=== PATIENT | female | born 1955 | race Caucasian/White ===

== ENCOUNTER 2020-02-17 17:46 | Inpatient (IN) | payer MEDICARE ==
[~2020-02-17] VITALS: Ht 154.9 cm; Wt 34.3 kg
--- NOTE | 2020-02-17 18:08 | NUR ---
BREAK RN: PT BIB [facility] FROM HOME C/O INTERMITTENT ABD PAIN WITH N/V X WEEKS. PT WORSE TODAY WITH RUQ/RLQ PAIN AND N/V DECSRIBED "MUCOUS". PT WAS SEEN AT [facility] A FEW DAYS AGO FOR SAME. PT RECEIVED 12.5 MG PHENERGAN, 25 MCG FENTANYL AND 500 CC NS BY EMS LOAN ASSISTANT. PT REPORTS THE LAST EPISODE WAS APPROX 4 MONTHS AGO. PT ON CONT BP AND SPO2 MONITORS. ELMER RENDON AT BEDSIDE FOR EVAL. CALL LIGHT WITHIN REACH. WILL CONT TO MONITOR PT.
[2020-02-17] MEDS ORDERED: SODIUM CHLORIDE FLUSH 10ML SYR IVF ONE (18:30)
[2020-02-17 18:34] LABS: BASOPHILS # (AUTO) 0.03 x10^3/uL (0-0.1); BASOPHILS % (AUTO) 0 % (0-1); EOSINOPHILS # (AUTO) 0.11 x10^3/uL (0-0.4); EOSINOPHILS % (AUTO) 1 % (1-7); LYMPHOCYTES # (AUTO) 1.16 x10^3/uL (1-3.4); LYMPHOCYTES % (AUTO) 15 % (22-44); MD NO; MEAN CORPUSCULAR HEMOGLOBIN 29.7 pg (27.0-34.8); MEAN CORPUSCULAR HGB CONC 32.8 g/dL (32.4-35.8); MEAN PLATELET VOLUME 8.2 fL (7.4-10.4); MONOCYTES # (AUTO) 0.54 x10^3/uL (0.2-0.8); MONOCYTES % (AUTO) 7 % (2-9); NEUTROPHILS # (AUTO) 5.99 x10^3/uL (1.8-6.8); NEUTROPHILS % (AUTO) 77 % (42-75); PLATELET COUNT 213 x10^3/uL (130-400); RED BLOOD COUNT 4.54 x10^6/uL (3.82-5.3); RED CELL DISTRIBUTION WIDTH 14.4 % (9.6-15.2)
[2020-02-17 18:43] LABS: ALBUMIN 3.2 g/dL (3.4-5.0); ANION GAP 6 mmol/L (5-15); CALCIUM 8.6 mg/dL (8.5-10.1); CHLORIDE 108 mmol/L (98-107)
[2020-02-17 18:47] LABS: ALANINE AMINOTRANSFERASE 99 U/L (12-78); ALKALINE PHOSPHATASE 142 U/L (45-117); BILIRUBIN,TOTAL 0.9 mg/dL (0.2-1.0); CREATININE 0.38 mg/dL (0.55-1.02); TOTAL PROTEIN 6.1 g/dL (6.4-8.2)
--- NOTE | 2020-02-17 18:55 | NUR ---
POTASSIUM F 2.5 PER LAB. RESULT GIVEN TO PT PLACED ON CUTTER INSPECTOR.
[2020-02-17] MEDS ORDERED: CARBAMAZEPINE PO (19:14)
[2020-02-17 19:26] LABS: MICROSCOPIC NOT IND
[2020-02-17] MEDS ORDERED: POTASSIUM CHLORIDE 40 MEQ in SODIUM CHLORIDE 0.9% 500 ML IV ONE (19:30)
--- NOTE | 2020-02-17 19:35 | NUR ---
POTASSIUM STARTED PER MD ORDER. PT UPDATED ON POC. VSS.
--- NOTE | 2020-02-17 20:04 | NUR ---
PT IN US.
--- NOTE | 2020-02-17 21:00 | NUR ---
GEN SURG PAGED.
[2020-02-17] MEDS ORDERED: SODIUM CHLORIDE 0.9% 1,000 ML IV SCH (21:03)
--- NOTE | 2020-02-17 21:10 | NUR ---
TASK RN: PT ASSISTED TO BS COMMODE TO URINATE. PT LIGHTS DIMMED FOR COMFORT, NAD, RESP WNL, P/W/D. CALL LIGHT ON LAP Addendum: 02/17/20 at 2112 by ESCHILLING PT ASSISTED TO BEDPAN.
[2020-02-17 21:13] LABS: INTERNATIONAL NORMALIZED RATIO 1.01 (0.93-1.1); PROTHROMBIN TIME 10.7 Seconds (9.6-11.5)
[2020-02-17] MEDS ORDERED: ONDANSETRON 2MG/ML, 2ML IVPush PRN (21:30)
[2020-02-17] MEDS ORDERED: morphine SULFATE 10 MG/ML, 1ML IVPush PRN (21:30)
[2020-02-17 22:05] VITALS: BP 141/97
[2020-02-17] MEDS: NS + 20MEQ KCL 1,000 ML IV SCH (23:24)
[2020-02-18 01:13] VITALS: BP 131/85
[2020-02-18 04:08] LABS: BASOPHILS # (AUTO) 0.04 x10^3/uL (0-0.1); BASOPHILS % (AUTO) 1 % (0-1); EOSINOPHILS # (AUTO) 0.08 x10^3/uL (0-0.4); EOSINOPHILS % (AUTO) 1 % (1-7); LYMPHOCYTES # (AUTO) 2.01 x10^3/uL (1-3.4); LYMPHOCYTES % (AUTO) 31 % (22-44); MD NO; MEAN CORPUSCULAR HEMOGLOBIN 29.8 pg (27.0-34.8); MEAN CORPUSCULAR HGB CONC 32.8 g/dL (32.4-35.8); MEAN PLATELET VOLUME 8.2 fL (7.4-10.4); MONOCYTES # (AUTO) 0.53 x10^3/uL (0.2-0.8); MONOCYTES % (AUTO) 8 % (2-9); NEUTROPHILS # (AUTO) 3.91 x10^3/uL (1.8-6.8); NEUTROPHILS % (AUTO) 60 % (42-75); PLATELET COUNT 208 x10^3/uL (130-400); RED BLOOD COUNT 4.37 x10^6/uL (3.82-5.3); RED CELL DISTRIBUTION WIDTH 14.3 % (9.6-15.2)
[2020-02-18 04:22] LABS: ALANINE AMINOTRANSFERASE 177 U/L (12-78); ALBUMIN 3.2 g/dL (3.4-5.0); ANION GAP 7 mmol/L (5-15); BILIRUBIN, DIRECT 0.8 mg/dL (0.1-0.2); CALCIUM 8.6 mg/dL (8.5-10.1); CHLORIDE 116 mmol/L (98-107); CREATININE 0.26 mg/dL (0.55-1.02)
[2020-02-18 04:25] LABS: ALKALINE PHOSPHATASE 179 U/L (45-117); BILIRUBIN,INDIRECT 0.6 mg/dL (0.0-2.0); BILIRUBIN,TOTAL 1.4 mg/dL (0.2-1.0); CHOL/HDL RATIO 4.3; CHOLESTEROL, TOTAL 226 mg/dL (140-239); HDL CHOL % 23 % (28-40); HDL CHOLESTEROL (DIRECT) 52 mg/dL (40-60); LDL CHOLESTEROL,CALCULATED 152 mg/dL (54-169); LDL/HDL RATIO 2.9 (0.5-3.0); TRIGLYCERIDES 110 mg/dL (50-200); VLDL CHOLESTEROL 22 mg/dL (0-25)
[2020-02-18 07:13] VITALS: BP 130/74
[2020-02-18] MEDS: NS + 20MEQ KCL 1,000 ML IV SCH ×2 (10:12→19:53)
[2020-02-18 12:42] VITALS: BP 130/71
[2020-02-18] MEDS ORDERED: MEGE400O6 PO (14:19)
[2020-02-18] MEDS ORDERED: CARB200T13 PO (14:19)
[2020-02-18] MEDS: CARBAMAZEPINE XR 200 MG TABLET PO PRN (15:14)
[2020-02-18 18:39] VITALS: BP 136/74
[2020-02-19 00:25] VITALS: BP 165/83
[2020-02-19] MEDS: CARBAMAZEPINE XR 200 MG TABLET PO PRN ×3 (00:37→19:54)
[2020-02-19 04:58] LABS: BASOPHILS # (AUTO) 0.06 x10^3/uL (0-0.1); BASOPHILS % (AUTO) 1 % (0-1); EOSINOPHILS # (AUTO) 0.03 x10^3/uL (0-0.4); EOSINOPHILS % (AUTO) 0 % (1-7); LYMPHOCYTES # (AUTO) 1.89 x10^3/uL (1-3.4); LYMPHOCYTES % (AUTO) 24 % (22-44); MD NO; MEAN CORPUSCULAR HEMOGLOBIN 30.6 pg (27.0-34.8); MEAN CORPUSCULAR HGB CONC 33.3 g/dL (32.4-35.8); MEAN PLATELET VOLUME 8.4 fL (7.4-10.4); MONOCYTES # (AUTO) 0.43 x10^3/uL (0.2-0.8); MONOCYTES % (AUTO) 6 % (2-9); NEUTROPHILS # (AUTO) 5.48 x10^3/uL (1.8-6.8); NEUTROPHILS % (AUTO) 69 % (42-75); PLATELET COUNT 243 x10^3/uL (130-400); RED BLOOD COUNT 4.87 x10^6/uL (3.82-5.3); RED CELL DISTRIBUTION WIDTH 14.1 % (9.6-15.2)
[2020-02-19] MEDS: NS + 20MEQ KCL 1,000 ML IV SCH ×2 (05:02→20:50)
[2020-02-19 05:09] LABS: ALANINE AMINOTRANSFERASE 163 U/L (12-78); ALBUMIN 3.7 g/dL (3.4-5.0); ANION GAP 14 mmol/L (5-15); CALCIUM 8.9 mg/dL (8.5-10.1); CHLORIDE 109 mmol/L (98-107); CREATININE 0.25 mg/dL (0.55-1.02)
[2020-02-19 05:11] LABS: ALKALINE PHOSPHATASE 204 U/L (45-117); BILIRUBIN,TOTAL 1.1 mg/dL (0.2-1.0); TOTAL PROTEIN 7.1 g/dL (6.4-8.2)
[2020-02-19] MEDS ORDERED: GLUCAGON 1 MG IM PRN (05:30)
[2020-02-19] MEDS ORDERED: DEXTROSE 50%, 50ML SYRINGE IVPush PRN (05:30)
[2020-02-19] MEDS ORDERED: DEXTROSE 4 GM TAB.CHEW PO PRN (05:30)
[2020-02-19] MEDS ORDERED: BUPIVACAINE/EPI 0.5% 1:200K ONE (07:02)
[2020-02-19] MEDS ORDERED: FENTANYL PF 100 MCG/2ML ONE ×2 (07:16→08:26)
[2020-02-19] MEDS ORDERED: PROPOFOL 10 MG/ML, 20ML ONE (07:17)
[2020-02-19] MEDS ORDERED: ONDANSETRON 2MG/ML, 2ML ONE ×2 (07:33→08:26)
[2020-02-19] MEDS ORDERED: EPHEDRINE 50 MG/ML, 1ML ONE (07:33)
[2020-02-19] MEDS ORDERED: CEFAZOLIN 1,000 MG ONE (07:33)
[2020-02-19] MEDS ORDERED: SUGAMMADEX 200 MG/2 ML IVPush ONE (07:33)
[2020-02-19] MEDS ORDERED: ROCURONIUM 10MG/ML,5ML ONE (07:33)
[2020-02-19] MEDS ORDERED: LIDOCAINE-MPF 2% ,5ML ONE (07:33)
[2020-02-19] MEDS: SODIUM CHLORIDE FLUSH 10ML SYR IVF SCH ×2 (07:40→19:55)
[2020-02-19] MEDS ORDERED: BUPIVACAINE/EPI 0.5% 1:200K INFIL ONE (07:57)
[2020-02-19] MEDS ORDERED: ACETAMINOPHEN 325 MG TABLET PO PRN (08:00)
[2020-02-19] MEDS ORDERED: OXYcodone 5 MG/5 ML ORAL.SOL UDC PO PRN (08:00)
[2020-02-19] MEDS ORDERED: ONDANSETRON 2MG/ML, 2ML IVPush PRN (08:00)
[2020-02-19] MEDS ORDERED: HYDROmorphone 1 MG/ML, 1ML INJ IVPush PRN (08:00)
[2020-02-19] MEDS: FENTANYL PF 100 MCG/2ML IV PRN ×4 (08:29→09:06)
[2020-02-19] MEDS ORDERED: OMNIPAQUE 350 MG/ML, 50 ML BOTTLE ONE (08:41)
[2020-02-19] MEDS ORDERED: hydrALAzine 20 MG/ML, 1ML ONE (09:02)
[2020-02-19] MEDS ORDERED: OXYcodone 5 MG/5 ML ORAL.SOL UDC ONE (09:14)
[2020-02-19] MEDS ORDERED: hydrALAzine 20 MG/ML, 1ML IV ONE (09:30)
[2020-02-19 10:25] VITALS: BP_SYST 165; BP_SYST 201; BP_DIAS 100; BP_DIAS 92
[2020-02-19] MEDS ORDERED: morphine SULFATE 10 MG/ML, 1ML IVPush PRN (10:30)
[2020-02-19] MEDS ORDERED: ENALAPRILAT 1.25 MG/ML, 2ML IV PRN (10:30)
[2020-02-19 11:07] VITALS: BP 161/91
[2020-02-19] MEDS: HYDROcodone/APAP 5/325 TABLET PO PRN ×2 (11:52→19:54)
[2020-02-19 12:47] VITALS: BP 142/87
[2020-02-19 20:08] VITALS: BP 142/74
[2020-02-20 00:28] VITALS: BP 154/58
[2020-02-20] MEDS: HYDROcodone/APAP 5/325 TABLET PO PRN ×2 (05:27→21:07)
[2020-02-20] MEDS: NS + 20MEQ KCL 1,000 ML IV SCH ×2 (06:33→22:06)
[2020-02-20] MEDS: SODIUM CHLORIDE FLUSH 10ML SYR IVF SCH ×2 (07:09→21:06)
[2020-02-20 07:29] LABS: BASOPHILS # (AUTO) 0.04 x10^3/uL (0-0.1); BASOPHILS % (AUTO) 0 % (0-1); EOSINOPHILS # (AUTO) 0.02 x10^3/uL (0-0.4); EOSINOPHILS % (AUTO) 0 % (1-7); LYMPHOCYTES # (AUTO) 1.34 x10^3/uL (1-3.4); LYMPHOCYTES % (AUTO) 14 % (22-44); MD NO; MEAN CORPUSCULAR HEMOGLOBIN 29.9 pg (27.0-34.8); MEAN CORPUSCULAR HGB CONC 32.5 g/dL (32.4-35.8); MEAN PLATELET VOLUME 7.7 fL (7.4-10.4); MONOCYTES # (AUTO) 0.79 x10^3/uL (0.2-0.8); MONOCYTES % (AUTO) 8 % (2-9); NEUTROPHILS # (AUTO) 7.31 x10^3/uL (1.8-6.8); NEUTROPHILS % (AUTO) 77 % (42-75); PLATELET COUNT 238 x10^3/uL (130-400); RED BLOOD COUNT 4.73 x10^6/uL (3.82-5.3); RED CELL DISTRIBUTION WIDTH 14.4 % (9.6-15.2)
[2020-02-20 07:39] LABS: ALANINE AMINOTRANSFERASE 127 U/L (12-78); ALBUMIN 3.3 g/dL (3.4-5.0); ANION GAP 8 mmol/L (5-15); CALCIUM 8.7 mg/dL (8.5-10.1); CHLORIDE 108 mmol/L (98-107); CREATININE 0.37 mg/dL (0.55-1.02)
[2020-02-20 07:41] LABS: ALKALINE PHOSPHATASE 181 U/L (45-117); BILIRUBIN,TOTAL 1.1 mg/dL (0.2-1.0); TOTAL PROTEIN 6.5 g/dL (6.4-8.2)
[2020-02-20 09:19] VITALS: BP 155/81
[2020-02-20] MEDS: MEGESTROL ORAL.SUSP 40 MG/ML PO SCH (10:23)
[2020-02-20] MEDS ORDERED: POLYETHYLENE GLYCOL 17 GM PACKET NG PRN (14:30)
[2020-02-20 15:31] VITALS: BP 145/90
[2020-02-20 19:20] VITALS: BP 138/87
[2020-02-20] MEDS: CARBAMAZEPINE XR 200 MG TABLET PO PRN (21:06)
[2020-02-20] MEDS: SENNA/DOCUSATE TABLET PO PRN (21:06)
[2020-02-21 01:11] VITALS: BP 105/69
[2020-02-21 05:55] LABS: BASOPHILS # (AUTO) 0.05 x10^3/uL (0-0.1); BASOPHILS % (AUTO) 1 % (0-1); EOSINOPHILS # (AUTO) 0.08 x10^3/uL (0-0.4); EOSINOPHILS % (AUTO) 1 % (1-7); LYMPHOCYTES % (AUTO) 30 % (22-44); MD NO; MEAN CORPUSCULAR HGB CONC 32.7 g/dL (32.4-35.8); MEAN PLATELET VOLUME 8.6 fL (7.4-10.4); MONOCYTES # (AUTO) 0.56 x10^3/uL (0.2-0.8); MONOCYTES % (AUTO) 8 % (2-9); NEUTROPHILS % (AUTO) 60 % (42-75); PLATELET COUNT 219 x10^3/uL (130-400); RED BLOOD COUNT 4.43 x10^6/uL (3.82-5.3); RED CELL DISTRIBUTION WIDTH 14.3 % (9.6-15.2)
[2020-02-21 05:58] LABS: ALBUMIN 3.1 g/dL (3.4-5.0); ANION GAP 5 mmol/L (5-15); CALCIUM 9.1 mg/dL (8.5-10.1); CHLORIDE 106 mmol/L (98-107)
[2020-02-21 06:02] LABS: ALANINE AMINOTRANSFERASE 122 U/L (12-78); ALKALINE PHOSPHATASE 192 U/L (45-117); CREATININE 0.24 mg/dL (0.55-1.02); TOTAL PROTEIN 6.1 g/dL (6.4-8.2)
[2020-02-21] MEDS: MEGESTROL ORAL.SUSP 40 MG/ML PO SCH (07:49)
[2020-02-21] MEDS: SODIUM CHLORIDE FLUSH 10ML SYR IVF SCH ×2 (07:49→21:00)
[2020-02-21 07:50] VITALS: BP 166/82
[2020-02-21] MEDS: SENNA/DOCUSATE TABLET PO PRN (11:49)
[2020-02-21 14:10] VITALS: BP 140/86
[2020-02-21] MEDS: NS + 20MEQ KCL 1,000 ML IV SCH (18:00)
[2020-02-21 18:58] VITALS: BP 109/77
[2020-02-22 00:22] VITALS: BP 107/63
[2020-02-22] MEDS: CARBAMAZEPINE XR 200 MG TABLET PO PRN (00:24)
[2020-02-22] MEDS: HYDROcodone/APAP 5/325 TABLET PO PRN (00:25)
[2020-02-22 06:08] LABS: BASOPHILS # (AUTO) 0.03 x10^3/uL (0-0.1); BASOPHILS % (AUTO) 1 % (0-1); EOSINOPHILS # (AUTO) 0.09 x10^3/uL (0-0.4); EOSINOPHILS % (AUTO) 2 % (1-7); LYMPHOCYTES # (AUTO) 2.08 x10^3/uL (1-3.4); LYMPHOCYTES % (AUTO) 36 % (22-44); MD NO; MEAN CORPUSCULAR HEMOGLOBIN 30.1 pg (27.0-34.8); MEAN CORPUSCULAR HGB CONC 32.9 g/dL (32.4-35.8); MEAN PLATELET VOLUME 8.4 fL (7.4-10.4); MONOCYTES # (AUTO) 0.47 x10^3/uL (0.2-0.8); MONOCYTES % (AUTO) 8 % (2-9); NEUTROPHILS # (AUTO) 3.13 x10^3/uL (1.8-6.8); NEUTROPHILS % (AUTO) 54 % (42-75); PLATELET COUNT 222 x10^3/uL (130-400); RED CELL DISTRIBUTION WIDTH 14.3 % (9.6-15.2)
[2020-02-22 06:10] LABS: ALANINE AMINOTRANSFERASE 113 U/L (12-78); ALBUMIN 2.8 g/dL (3.4-5.0); ANION GAP 6 mmol/L (5-15); CHLORIDE 108 mmol/L (98-107)
[2020-02-22 06:13] LABS: ALKALINE PHOSPHATASE 209 U/L (45-117); BILIRUBIN,TOTAL 0.6 mg/dL (0.2-1.0); CREATININE 0.24 mg/dL (0.55-1.02); TOTAL PROTEIN 5.9 g/dL (6.4-8.2)
[2020-02-22 07:37] VITALS: BP 153/86
[2020-02-22] MEDS: SODIUM CHLORIDE FLUSH 10ML SYR IVF SCH (07:59)
[2020-02-22] MEDS: MEGESTROL ORAL.SUSP 40 MG/ML PO SCH (09:10)
[2020-02-22 13:51] VITALS: BP 106/68
[2020-02-22] MEDS ORDERED: OXYC5TAB3 PO (14:17)
[2020-02-22] MEDS ORDERED: POLY17PO5 NG (14:17)
== END 2020-02-22 17:51 | DRG 417 ==
LOC: ED 18:09 → EDIP 20:43 → 4WST 21:51
PROVIDERS: ADMIT Internal Medicine; ATTEND Internal Medicine
PROC: 0FT44ZZ Resection of Gallbladder, Percutaneous Endoscopic Approach (ICD-10-PCS; 2020-02-19)
PROC: BF12YZZ Fluoroscopy of Gallbladder using Other Contrast (ICD-10-PCS; principal; 2020-02-19 07:30)
DX: K80.20 Calculus of gallbladder without cholecystitis without obstruction (principal); E43 Unspecified severe protein-calorie malnutrition; Z68.1 Body mass index [BMI] 19.9 or less, adult; R64 Cachexia; R53.81 Other malaise; I25.10 Atherosclerotic heart disease of native coronary artery without angina pectoris; E87.6 Hypokalemia; F12.90 Cannabis use, unspecified, uncomplicated; G71.11 Myotonic muscular dystrophy; Z90.710 Acquired absence of both cervix and uterus; Z86.73 Personal history of transient ischemic attack (TIA), and cerebral infarction without residual deficits; Z95.0 Presence of cardiac pacemaker; Z79.01 Long term (current) use of anticoagulants; Z88.8 Allergy status to other drugs, medicaments and biological substances; Z90.49 Acquired absence of other specified parts of digestive tract
CPT/HCPCS: 36415; 74300; 76700; 80048; 80053; 80061; 80076; 81003; 82962; 83605; 83690; 83735; 84100; 85025; 85610; 87040; 87635; 88304; 99285; G0378; J0690; J2405; J2704; J3010; J3480; Q9967; J0360; J2270; J7040